=== PATIENT | male | born 1995 | race American Indian/Alaskan Native ===

== ENCOUNTER 2016-10-20 17:30 | Emergency (ER) | payer OTHER ==
[2016-10-20] MEDS ORDERED: MOTRIN PO ONE (17:50)
[2016-10-20] MEDS ORDERED: NORCO 5/325 ONE ×2 (19:05→21:25)
[2016-10-20] MEDS ORDERED: FLEXERIL ONE (21:25)
--- NOTE | 2016-10-20 21:58 | Emergency Department Report ---
ED Laceration HPI - HPI Chief Complaint: Laceration/Recheck/Suture Stated Complaint: cut on wrist Occurred When: Today Location: Upper Extremity Severity: mild Tetanus Status: Not up to Date Laceration Symptoms: Yes Pain, No Foreign Body Sensation, No Numbness, No Weakness Other History: 21 year old male presents to ED with left lateral wrist laceration. patient is stable, neurologically intact and in no acute distress. patient is unsure of last tetanus shot. ED Review of Systems ROS: Stated complaint: Other details as noted in HPI Constitutional: denies: chills, fever Eyes: denies: eye pain, eye discharge, vision change ENT: denies: ear pain, throat pain Respiratory: denies: cough, shortness of breath, wheezing Cardiovascular: denies: chest pain, palpitations Endocrine: no symptoms reported Gastrointestinal: denies: abdominal pain, nausea, diarrhea Genitourinary: denies: urgency, dysuria Musculoskeletal: denies: back pain, joint swelling, arthralgia Skin: other (laceration). denies: rash, lesions Neurological: denies: headache, weakness, paresthesias Psychiatric: denies: anxiety, depression Hematological/Lymphatic: denies: easy bleeding, easy bruising ED Past Medical Hx - Medications Home Medications: Home Medications Medication Instructions Recorded Confirmed Last Taken Type Meloxicam [Mobic] 7.5 mg PO QDAY #5 tablet 10/20/16 Unknown Rx methOCARBAMOL [Robaxin TAB] 500 mg PO TID #15 tab 10/20/16 Unknown Rx Laceration Physical Exam - Exam General: Vital signs noted. No distress. Alert and acting appropriately. Laceration Location: Upper Extremity (.5cm left wrist laceration. bleeding well controlled) Laceration Exam: Yes Normal Distal CMS, No Foreign Body, No Exposed Tendon, Vessel, or Nerve, No Tendon Injury - Laceration /Wound Repair Left Anterior Lateral Distal Wrist Wound Location: upper extremity (.5cm left wrist) Wound's Depth, Shape: superficial Wound Explored: clean Irrigated w/ Saline (ccs): 10 Wound Repaired With: Dermabond Sterile Dressing Applied?: Yes Progress: pt tolerated well. bleeding well controlled. ED Medical Decision Making - Radiology Data Radiology results: report reviewed, image reviewed XR hand/forearm NO acute process. no foreign body identified. Essentially negative study per radiologist. - Medical Decision Making 21 year old male presents to ED with left wrist lac 3 hours ago after punching glass. patient appears to have no acute findings on imaging. patient is stable, neurologically intact and in no acute distress. patient has had lac repaired with dermabond and has tolerated procedure well. Critical care attestation.: If time is entered above; I have spent that time in minutes in the direct care of this critically ill patient, excluding procedure time. ED Disposition Clinical Impression: Laceration of wrist, left Qualifiers: Encounter type: initial encounter Qualified Code(s): S61.512A - Laceration without foreign body of left wrist, initial encounter Disposition: TO HOME OR SELFCARE Is pt being admited?: No Does the pt Need Aspirin: No Condition: Stable Instructions: Laceration (ED) Prescriptions: Meloxicam [Mobic] 7.5 mg PO QDAY #5 tablet methOCARBAMOL [Robaxin TAB] 500 mg PO TID #15 tab Referrals: DOC,ED, MD [Primary Care Provider] - 2-3 Days (Please follow up with your PCP within 2-3 days. ) Forms: Work/School Release Form(ED)
[2016-10-20] MEDS ORDERED: FLEXERIL PO ONE (23:01)
[2016-10-20] MEDS ORDERED: NORCO 5/325 PO ONE (23:01)
--- NOTE | 2016-10-21 10:43 | XRay Report ---
Left forearm 2 views: History: Laceration to wrist. Left forearm pain. Findings: Normal radius and ulna. No periosteal reaction fracture or soft tissue calcification. Impression: Essentially negative study.
--- NOTE | 2016-10-21 10:44 | XRay Report ---
Left hand 2 views: History: Left hand pain. Laceration to wrist. Findings: No fracture, periosteal reaction or lytic lesion. Normal articular surfaces. No soft tissue calcification. Impression: Essentially negative left hand.
== END 2016-10-20 22:15 | disposition home or self-care (01) ==
LOC: ED 17:30
DX: S61.512A Laceration without foreign body of left wrist, initial encounter (principal); W45.8XXA Other foreign body or object entering through skin, initial encounter; Y93.89 Activity, other specified; Y92.89 Other specified places as the place of occurrence of the external cause; Y99.8 Other external cause status
CPT/HCPCS: 99283

== ENCOUNTER 2017-01-29 18:55 | Emergency (ER) | payer OTHER ==
[2017-01-29 19:09] VITALS: BP 131/88
== END 2017-01-30 01:30 | disposition left against medical advice (07) ==
LOC: ED 18:55
DX: S61.212A Laceration without foreign body of right middle finger without damage to nail, initial encounter (principal); Z53.21 Procedure and treatment not carried out due to patient leaving prior to being seen by health care provider